=== PATIENT | female | born 1990 | race African-American/Black ===

== ENCOUNTER 2016-12-18 11:49 | Emergency (ER) | payer SELFPAY ==
[2016-12-18 13:16] VITALS: BP 111/80
--- NOTE | 2016-12-18 14:01 | UC ---
Complaint Female HPI - HPI Summary HPI Summary: Pt c/o tenderness at opening of rectum. pt concerned that she may have hemorrhoid. Pt reports that she is occasionally constipated. Pt reports that she treated herself for vaginal yeast infection 1-2 weeks ago - History Of Current Complaint Chief Complaint: UCGI Stated Complaint: PERSONAL SKIN COMPLAINT Time Seen by Provider: 12/18/16 13:16 Hx Obtained From: Patient Hx Last Menstrual Period: 12/10/16 ?: No Onset/Duration: Gradual Onset, Lasting Days, Still Present Timing: Constant Severity Initially: Mild Severity Currently: Mild Character: Burning Associated Signs And Symptoms: Positive: Negative - Allergies/Home Medications Allergies/Adverse Reactions: Allergies Allergy/AdvReac Type Severity Reaction Status Date / Time No Known Allergies Allergy Verified 12/18/16 13:16 PMH/Surg Hx/FS Hx/Imm Hx Previously Healthy: Yes - Surgical History Surgical History: None - Family History Known Family History: Positive: Cardiac Disease - Social History Occupation: Employed Full-time Lives: With Family Alcohol Use: Occasionally Substance Use Type: None Smoking Status (MU): Never Smoked Tobacco Have You Smoked in the Last Year: No Review of Systems Constitutional: Negative Skin: Other - tenderness, rectum/perinium Eyes: Negative ENT: Negative Respiratory: Negative Cardiovascular: Negative Gastrointestinal: Negative Genitourinary: Negative Motor: Negative Neurovascular: Negative Musculoskeletal: Negative Neurological: Negative Psychological: Negative Is Patient Immunocompromised?: No All Other Systems Reviewed And Are Negative: Yes Physical Exam Triage Information Reviewed: Yes Appearance: Well-Appearing Vital Signs: Initial Vital Signs Temp 98.4 F 12/18/16 13:10 Pulse 90 12/18/16 13:10 Resp 16 12/18/16 13:10 BP 111/80 12/18/16 13:10 Pulse Ox 98 12/18/16 13:10 Vital Signs Reviewed: Yes Eye Exam: Normal Neck exam: Normal Respiratory Exam: Normal Cardiovascular Exam: Normal Abdominal Exam: Normal Musculoskeletal Exam: Normal Neurological Exam: Normal Psychological Exam: Normal Skin Exam: Other - smal 1.5 cm skin "split"/tear at 12 o'clock position of anus , in gluteal crease, "raw". pink skin that is tender. Complaint Female Dx - Differential Dx/Diagnosis Differential Diagnosis/HQI/PQRI: Other - hemorrhoid Provider Diagnoses: tinea. acute skin wound Discharge - Discharge Plan Condition: Stable Disposition: HOME Prescriptions: Miconazole TOPICAL CREAM 2%* [Monistat 2%*] 1 applic TOPICAL DAILY #1 tube Patient Education Materials: Skin Tear (ED), Skin Yeast Infection (ED) Referrals: [facility] [Outside] - If Needed Additional Instructions: Please follow up with your PCP as needed.
== END 2016-12-18 14:18 | disposition home or self-care (01) ==
LOC: UCCORT 11:49
DX: B35.9 Dermatophytosis, unspecified (principal); S31.831A Laceration without foreign body of anus, initial encounter; X58.XXXA Exposure to other specified factors, initial encounter; Y92.9 Unspecified place or not applicable
CPT/HCPCS: 99202; G0463

== ENCOUNTER 2016-12-22 20:57 | Emergency (ER) | payer SELFPAY ==
[2016-12-22 21:08] VITALS: BP 116/66
--- NOTE | 2016-12-22 21:46 | UC ---
UC General HPI - HPI Summary HPI Summary: Patient was seen two days ago with an external tear to the rectum from a hard stool, she has occasional constipation, she was also treated with monistat for a yeast infection. patient is still having drainage and is very sore. did have bleeding with a bowel movement. - History of Current Complaint Chief Complaint: UCGU Stated Complaint: RECTAL PAIN Hx Obtained From: Patient Hx Last Menstrual Period: last week Onset/Duration: Sudden Onset, Lasting Days Timing: Constant Onset Severity: Moderate Current Severity: Moderate - Allergy/Home Medications Allergies/Adverse Reactions: Allergies Allergy/AdvReac Type Severity Reaction Status Date / Time No Known Allergies Allergy Verified 12/18/16 13:16 PMH/Surg Hx/FS Hx/Imm Hx Previously Healthy: Yes - Surgical History Surgical History: None - Family History Known Family History: Positive: Cardiac Disease - Social History Alcohol Use: Occasionally Substance Use Type: None Smoking Status (MU): Never Smoked Tobacco Have You Smoked in the Last Year: No Review of Systems Constitutional: Negative Skin: Negative Eyes: Negative ENT: Negative Respiratory: Negative Cardiovascular: Negative Gastrointestinal: Negative, Other Motor: Negative Neurovascular: Negative Musculoskeletal: Negative Neurological: Negative Psychological: Negative Is Patient Immunocompromised?: No All Other Systems Reviewed And Are Negative: Yes Physical Exam Triage Information Reviewed: Yes Appearance: Well-Appearing, Well-Nourished, Pain Distress Vital Signs: Initial Vital Signs Temp 98.8 F 12/22/16 21:02 Pulse 97 12/22/16 21:02 Resp 14 12/22/16 21:02 BP 116/66 12/22/16 21:02 Vital Signs Reviewed: Yes Eye Exam: Normal ENT Exam: Normal ENT: Positive: Hearing grossly normal, Pharynx normal, TMs normal Dental Exam: Normal Neck exam: Normal Neck: Positive: Supple, Nontender, No Lymphadenopathy Respiratory Exam: Normal Respiratory: Positive: Chest non-tender, Lungs clear, Normal breath sounds Cardiovascular Exam: Normal Cardiovascular: Positive: RRR, No Murmur, Pulses Normal Abdomen Description: Positive: Nontender, No Organomegaly, Soft, Other: - small open fissure to the anus, non red, perineal irriation and redness that appears yeastlike. large amount of white drainage, but patient did insert a monistat, vaginal wall is pink, small fryable area of cervix noted, no cervical motion tenderness. no strong odor. Bowel Sounds: Positive: Present Musculoskeletal Exam: Normal Musculoskeletal: Positive: Strength Intact, ROM Intact, No Edema Neurological Exam: Normal Neurological: Positive: Alert, Muscle Tone Normal Psychological Exam: Normal Skin Exam: Normal Course/Dx - Course Course Of Treatment: hx obtained, exam performed, meds reviewed, pelvic exam performed, treated for vaginitis - Differential Dx - Multi-Symptom Provider Diagnoses: constipation. anal fissure. vaginitits Discharge - Discharge Plan Condition: Stable Disposition: HOME Prescriptions: Fluconazole [Diflucan 150 MG (NF)] 150 mg PO WEEKLY #2 tab Patient Education Materials: Vaginitis (ED), Anal Fissure (ED) Additional Instructions: 1. use the medication as prescribed. 2. Warm water soaks, you can add vinegar to the water, 3. Coconut oil topically is effective in reducing the irritation 4. I have prescribed colase , increase your fluid intake and follow up with your doctor if constipation persists.
[2016-12-23 14:42] LABS: Trichomonas Source Endocervical (Negative)
== END 2016-12-22 21:59 | disposition home or self-care (01) ==
LOC: UCCORT 20:57
DX: K60.2 Anal fissure, unspecified (principal); N76.0 Acute vaginitis; K59.00 Constipation, unspecified
CPT/HCPCS: 87480; 87491; 87510; 87591; 87661; 99212; G0463